=== PATIENT | male | born 1950 | race Hispanic/Latino ===

== ENCOUNTER 2022-11-30 06:41 | Day surgery (SDC) | payer OTHER ==
[2022-11-28 14:42] LABS: BASOPHILS % (AUTO) 0.3 % (0.0-5.0); EOSINOPHILS % (AUTO) 0.6 % (0.0-8.0); HEMATOCRIT 44.6 % (42-54); LYMPHOCYTES % (AUTO) 18.4 % (21.0-51.0); MEAN CORPUSCULAR HEMOGLOBIN 31.8 pg (27.0-33.0); MEAN CORPUSCULAR HGB CONC 32.1 g/dL (32.0-36.0); MEAN CORPUSCULAR VOLUME 99.3 fL (79-99); MONOCYTES % (AUTO) 6.5 % (3.0-13.0); NEUTROPHILS % (AUTO) 73.9 % (40.0-77.0); PLATELET COUNT (AUTO) 349 K/uL (130-400); RED BLOOD CELL COUNT(AUTO) 4.49 MIL/uL (4.50-6.20); RED CELL DISTRIBUTION WIDTH 13.3 % (11.0-15.5)
[2022-11-28 14:50] VITALS: BP 141/71
[2022-11-28 14:53] LABS: POTASSIUM 5.2 mmol/L (3.5-5.1)
[~2022-11-30] VITALS: Ht 165.1 cm; Wt 97.8 kg
[2022-11-30] VITALS (11 sets, daily range): BP systolic 122–145; BP diastolic 71–90
[~2022-11-30 06:41] MED LIST: ACET-2743 PO; GABA300C PO; IBUP-2070 PO; OMEP40CA21 PO; TAMS-1 PO
[2022-11-30] MEDS ORDERED: LACTATED RINGERS 1000ML 1,000 ML IV ONE (07:08)
[2022-11-30] MEDS ORDERED: LEVOFLOXACIN 500 MG/D5W 100 ML 100 ML ONE (07:08)
[2022-11-30] MEDS ORDERED: GENTAMICIN 80 MG/NS 100 ML PB 100 ML IV ONE (07:09)
[2022-11-30] MEDS ORDERED: FAMOTIDINE 20MG VIAL IV ONE (09:20)
[2022-11-30] MEDS ORDERED: LIDOCAINE PF 100MG/5ML (2%) SYRINGE 5ML ONE (09:25)
[2022-11-30] MEDS ORDERED: PROPOFOL 10 MG/ML 20ML VIAL IV ONE ×2 (09:26→09:47)
[2022-11-30] MEDS ORDERED: MIDAZOLAM HCL 1 MG/ML 2ML VIAL ONE (09:26)
[2022-11-30] MEDS ORDERED: FENTANYL CITRATE PF 50 MCG/1 ML 2ML VIAL ONE (09:26)
[2022-11-30] MEDS ORDERED: LIDOCAINE HCL 2% PF 20 ML JEL DISP.SYRIN MM ONE (09:55)
== END 2022-11-30 11:35 | disposition home or self-care (01) ==
LOC: DAH 06:41
PROVIDERS: ATTEND Urology
DX: R97.20 Elevated prostate specific antigen [PSA] (principal); Z20.822 Contact with and (suspected) exposure to COVID-19; C61 Malignant neoplasm of prostate; R35.1 Nocturia; K21.9 Gastro-esophageal reflux disease without esophagitis; Z90.49 Acquired absence of other specified parts of digestive tract; Z88.0 Allergy status to penicillin; Z87.891 Personal history of nicotine dependence
CPT/HCPCS: 80048; 85025; 87426; 36415; 55700; 76872; 76942; A6260; A4663; A4215 ×2; A4223; A4222; A4221; J7120; J3490; J3010; J1956; J2001; J2250; J2704; J1580; A4649